=== PATIENT | female | born 1975 | race Two or more races ===

== ENCOUNTER 2021-01-01 23:48 | Emergency (ER) | payer OTHER ==
[~2021-01-01] VITALS: Ht 154.9 cm; Wt 80.7 kg
[2021-01-02] MEDS ORDERED: SYNTHROID125 MCG (00:11)
[2021-01-02] MEDS ORDERED: MEDROL8 MG PO ×2 (02:47→02:49)
[2021-01-02] MEDS ORDERED: BENADRYL25 MG PO (02:48)
[2021-01-02] MEDS ORDERED: PEPCID40 MG PO ×2 (02:48→02:49)
== END 2021-01-02 03:06 ==
LOC: ER 23:48
DX: L50.8 Other urticaria (principal)

== ENCOUNTER 2021-09-14 20:33 | Emergency (ER) | payer OTHER ==
[~2021-09-14] VITALS: Ht 154.9 cm; Wt 79.4 kg
[~2021-09-14 20:33] MED LIST: BENADRYL25 MG PO; MEDROL8 MG PO; PEPCID40 MG PO; SYNTHROID125 MCG
[2021-09-14] MEDS ORDERED: NORFLEX100MG PO (21:25)
== END 2021-09-14 22:24 | disposition home or self-care (01) ==
LOC: ER 20:33
DX: M25.59 Pain in other specified joint (principal)

== ENCOUNTER 2024-07-10 13:33 | Emergency (ER) | payer OTHER ==
[~2024-07-10] VITALS: Ht 154.9 cm; Wt 68.0 kg
[~2024-07-10 13:33] MED LIST changes: +NORFLEX100MG PO
[2024-07-10] MEDS ORDERED: ALBUTEROL SULFATE 3 ML/2.5 MG AMPUL.NEB IH STA (15:10)
[2024-07-10] MEDS ORDERED: BUDESONIDE 0.5 MG/2 ML AMPUL.NEB IH STA (15:10)
[2024-07-10] MEDS ORDERED: GUAIFENESIN 200 MG/10 ML BLIST.PACK PO STA (15:11)
[2024-07-10 15:50] LABS: HEMATOCRIT 37.6 % (36.0-45.00); HEMOGLOBIN 12.2 g/dL (12.0-15.00); MEAN CELL VOLUME 87.3 fL (80.00-100.00); MEAN CORPUSCULAR HEMOGLOBIN 28.2 pg (27.00-32.0); MEAN CORPUSCULAR HGB CONC 32.3 g/dl (32.0-36.0); PLATELET COUNT 242 K/uL (150-450); RED CELL DISTRIBUTION WIDTH 14.8 % (11.5-14.5)
[2024-07-10] MEDS ORDERED: GILTUSS COUGH-118 M1 PO (17:21)
[2024-07-10] MEDS ORDERED: OSEL75CA PO (17:21)
[2024-07-10] MEDS ORDERED: ACETAMINOPHEN500 M1 PO (17:21)
== END 2024-07-10 17:39 | disposition home or self-care (01) ==
LOC: ER 13:35
PROVIDERS: Emergency Medicine
DX: J10.1 Influenza due to other identified influenza virus with other respiratory manifestations (principal); Z20.822 Contact with and (suspected) exposure to COVID-19